=== PATIENT | male | born 1955 | race Caucasian/White ===

== ENCOUNTER 2020-04-02 11:04 | Emergency (ER) | payer OTHER, MEDICARE ==
[~2020-04-02] VITALS: Ht 172.7 cm; Wt 67.7 kg
[~2020-04-02 11:04] MED LIST: HCTZ25T PO; LORA0.5T PO; NAPR-56 PO; OXYC40TA39 PO; VAL5T PO
[2020-04-02] MEDS ORDERED: HYDROcodone/acetaminophen 5mg/325mg tablet PO ONE (12:50)
[2020-04-02] MEDS ORDERED: ketorolac trometh inj. 60 MG/2 ML VIAL IM ONE (12:50)
[2020-04-02 13:07] VITALS: BP 131/82
== END 2020-04-02 13:24 | disposition home or self-care (01) ==
LOC: ER 11:05
DX: M25.562 Pain in left knee (principal); G89.29 Other chronic pain; G62.9 Polyneuropathy, unspecified; I10 Essential (primary) hypertension; Z88.5 Allergy status to narcotic agent; Z79.899 Other long term (current) drug therapy
CPT/HCPCS: 96372; 99283; J1885

== ENCOUNTER 2025-01-21 20:57 | Emergency (ER) | payer MEDICARE, OTHER ==
[~2025-01-21] VITALS: Ht 172.7 cm; Wt 58.7 kg
[~2025-01-21 20:57] MED LIST changes: +DIAZ5TAB22 PO; -VAL5T PO
[2025-01-21 21:10] VITALS: TEMP 98.5
[2025-01-21 21:20] LABS: BASOPHILS # (AUTO) 0.1 X10'3 (0-0.2); BASOPHILS % (AUTO) 0.9 % (0-1); EOSINOPHILS # (AUTO) 0.3 X10'3 (0-0.9); EOSINOPHILS % (AUTO) 3.6 % (0-6); HEMATOCRIT 41.6 % (42.0-52.0); LYMPHOCYTES # (AUTO) 2.1 X10'3 (1.1-4.8); LYMPHOCYTES % (AUTO) 27.8 % (21-51); MEAN CORPUSCULAR HEMOGLOBIN 30.9 PG (27.0-31.0); MEAN CORPUSCULAR HGB CONC 33.6 g/dL (33.0-36.5); MEAN PLATELET VOLUME 7.8 FL (7.4-10.4); MONOCYTES # (AUTO) 0.8 X10'3 (0-0.9); MONOCYTES % (AUTO) 11.3 % (2-12); NEUTROPHILS # (AUTO) 4.2 X10'3 (1.8-7.7); NEUTROPHILS % (AUTO) 56.4 % (42-75); PLATELET COUNT 184 X10'3 (140-440); RED BLOOD COUNT 4.52 X10'6 (4.70-6.10); WHITE BLOOD COUNT 7.4 X10'3 (4.5-11.0)
--- NOTE | 2025-01-21 21:25 | Physician Documentation ---
History of Present Illness ~ Chief Complaint: Chest Pain Stated Complaint: DIZZINESS Time Seen by MD: 23:05 HPI Patient presents to the emergency room for evaluation after altered mental status. Unknown duration. Patient does not remember incident. What he reports that his family members stated was that his eyes were open but nobody was home. Patient's had two months ago and his sinus taking care of him. He denies chest pain Medication Reconciliation Allergies: Coded Allergies: meperidine (Unverified Allergy, Unknown, 01/21/25) morphine (Unverified Allergy, Unknown, 01/21/25) Uncoded Allergies: IV CONTRAST (Allergy, Unknown, 04/02/20) Scheduled Diazepam* (Valium*), 10 MG PO HS, (Reported) Hydrochlorothiazide* (Hctz*), 20 MG PO DAILY, (Reported) Lorazepam* (Ativan*), 0.5 MG PO BID, (Reported) Naproxen (Naproxen), 500 MG PO BID Oxycodone Hcl SR* (Oxycontin SR*), 40 MG PO BID, (Reported) Past Medical History Past Medical History: Peripheral Neuropathy, Hypertension, Chronic Pain Past Surgical History: noncontributory Lives In: Home Review of Systems ROS All review of systems negative except as per HPI Physical Exam Vital Signs: Temperature: 98.5, Source: Temporal, Heart Rate: 82, Respiratory Rate: 16, BP: 105/63, Pulse Oximetry: 97, Weight: 58.700 Oxygen Flow Rate: 0 Physical Exam General: Patient is sleeping, easily arousable in no acute distress. Head: Normocephalic and atraumatic. Eyes: Conjunctival normal. EOMI. PERRL. ENT: Mucous membranes moist. Neck: Supple, trachea is midline. Chest: Clear to auscultation bilaterally without rales, rhonchi, or wheezes. There is no accessory muscle use or retractions. Cardiac: RRR without murmurs, gallops, or rubs. Abd: Soft, nondistended, nontender, with normoactive bowel sounds. No guarding, rebound, or rigidity. Extremities: Normal strength. Normal range of motion. No deformities or edema. Back: No midline spinal or CVA tenderness. Skin: Warm and dry with no significant rash appreciated. Neuro: Cranial nerves II-XII grossly intact. No focal neuro deficits. Patient ambulating without difficulty. Progress Progress Note Attempted to call son but nobody answered Results/Orders Results/Orders Orders - ARJUN CRAFT MD Chest,Single View (01/21/25 21:03) Monitor (01/21/25 21:03) Saline Lock (01/21/25 21:03) Oxygen (01/21/25 21:03) Electrocardiogram (01/21/25 21:03) Ct Head (01/21/25 23:35) Normal Saline 1,000ml Iv Bolus (01/22/25 00:55) Completed Orders - ARJUN CRAFT MD Chest,Single View (01/21/25 21:03) Cbc/Diff (01/21/25 21:03) BMP (01/21/25 21:03) PBNP (01/21/25 21:03) Hs Troponin I W Calculations (01/21/25 21:03) Hs Troponin I W Calculations (01/21/25 23:03) Hs Troponin I W Calculations (01/22/25 00:03) Normal Saline 1000ml (Sodium Chloride 10 (01/21/25 23:30) Ct Head (01/21/25 23:35) Urinalysis, Cult If Indicated (01/21/25 23:31) Medications Received in ER Medications (Trade) Dose Ordered Sig/Nikolay Route PRN Reason Start Time Stop Time Status Last Admin Dose Admin Sodium Chloride 1,000 ml @ 1,000 mls/hr ONCE ONCE IV 01/21/25 23:30 01/22/25 00:29 DC 01/22/25 00:17 1,000 MLS/HR Vital Signs 01/21/25 01/21/25 01/21/25 21:10 22:27 23:42 Temp 98.5 Pulse 82 75 71 Resp 16 20 14 B/P (MAP) 105/63 100/60 (73) 105/69 (81) Pulse Ox 97 97 96 O2 Flow Rate 0 0 Laboratory Tests Test 01/21/25 21:05 01/21/25 22:58 01/22/25 00:01 01/22/25 00:10 White Blood Count 7.4 Red Blood Count 4.52 L Hemoglobin 14.0 Hematocrit 41.6 L Mean Corpuscular Volume 92.0 Mean Corpuscular Hemoglobin 30.9 Mean Corpuscular Hemoglobin Concent 33.6 Red Cell Distribution Width 14.0 Platelet Count 184 Mean Platelet Volume 7.8 Neutrophils (%) (Auto) 56.4 Lymphocytes (%) (Auto) 27.8 Monocytes (%) (Auto) 11.3 Eosinophils (%) (Auto) 3.6 Basophils (%) (Auto) 0.9 Neutrophils # (Auto) 4.2 Lymphocytes # (Auto) 2.1 Monocytes # (Auto) 0.8 Eosinophils # (Auto) 0.3 Basophils # (Auto) 0.1 CBC Comment Sodium Level 144 Potassium Level 4.2 Chloride Level 108 H Carbon Dioxide Level 28.8 Anion Gap 7 L Blood Urea Nitrogen 17 Creatinine 0.79 Estimated GFR/1.73 m2 > 90 BUN/Creatinine Ratio 21.5 H Glucose Level 113 H Calcium Level 8.8 Troponin I High Sensitivity 7 7 8 Pro-B-Type Natriuretic Peptide 69 Albumin 3.6 Chemistry Comments Troponin I High Sens Percent Delta 0 14 Troponin I Hi Sens Absolute Change 0 1 Urine Specimen Description Cln catch midstream Urine Color Yellow Urine Clarity Clear Urine pH 6.0 Urine Specific Glade 1.020 Urine Protein Negative Urine Glucose (UA) Negative Urine Ketones Negative Urine Occult Blood Negative Urine Nitrite Negative Urine Bilirubin Negative Urine Urobilinogen 0.2 Urine Leukocyte Esterase Negative Urine Culture Indicated Not ind Volume Urine Centrifuged 10 ml Urine Comment Medical Decision Making Findings Patient presents to the emergency room as per HPI. We are able to discussed the case with the son who called back. Apparently he was laying in bed and sat up and was confused for a few minutes. Differentials include but are not limited to seizure, stroke, parasomnia, encephalopathy therefore emergent labs and imaging indicated. No postictal state reported and he had not feel he was suffering from seizure and CT scan is reassuring. Given abnormality after sleeping upon wakening he feels he may have been suffering from sleep walking/parasomnia. Neurologic exam is reassuring. He is oriented. Labs are reassuring. Departure Disposition: HOME / SELF CARE / HOMELESS Impression: Primary Impression: Parasomnia, unspecified Condition: Stable Discharge Instructions: General Discharge Instructions Additional Instructions: Drink plenty of water Referrals: NO PRIMARY CARE PROVIDER (PCP) Education Educated: Patient Educated regarding: need for follow up Additional Comment Medical Screen Exam History: This 69-year-old male presented by EMS for episode of chest pain and confusion that has since resolved. Exam: VITALS: Reviewed and as above. GENERAL: Alert, nontoxic appearing, no apparent distress. RESPIRATORY: No increased work of breathing, no respiratory distress, speaking in full clear sentences MSE performed in triage and patient returned to ED lobby by nursing staff ACS protocol initiated by nursing staff, initial EKG demonstrated some minimal isolated ST-elevation in lead II, otherwise patient is hemodynamically stable Signature Scribe Signature: No scribe Attestation: The note accurately reflects work and decisions made by me.Arjun Craft MD 01/22/25 00:55 REMINGTON CANOP Jan 21, 2025 21:25 ARJUN CRAFT MD Jan 21, 2025 23:30
[2025-01-21 21:41] LABS: ALBUMIN 3.6 G/DL (3.4-5.0); ANION GAP 7 (8-16); BLOOD UREA NITROGEN 17 MG/DL (7-18); BUN/CREATININE RATIO 21.5 (10.0-20.0); CALCIUM 8.8 MG/DL (8.5-10.1); CHLORIDE 108 MMOL/L (99-107); CREATININE 0.79 MG/DL (0.60-1.10); GLUCOSE 113 MG/DL (70-104); POTASSIUM 4.2 MMOL/L (3.5-5.1); PRO BRAIN NATRIURETIC PEPTIDE 69 PG/ML (0-125); SODIUM 144 MMOL/L (135-145); TOTAL CARBON DIOXIDE 28.8 MMOL/L (24-32); eCRCL 75 ML/MIN; eGFR > 90 ML/MIN
--- NOTE | 2025-01-21 22:25 | RADIOLOGY REPORT ---
CHEST RADIOGRAPH Indication: CP Technique: Single frontal view of the chest was obtained Comparison: None FINDINGS: Lines and Tubes: None Lungs: Clear Pleura: No effusion. No pneumothorax. Cardiomediastinal contours: Unremarkable Bones: Unremarkable IMPRESSION: Clear lungs.
[2025-01-21 23:42] VITALS: O2SAT 96
[2025-01-22] MEDS: normal saline 1000ml 1,000 ML IV ONE ×2 (00:17→01:13)
[2025-01-22 00:39] LABS: BILIRUBIN,URINE NEGATIVE (Neg); CLARITY,URINE CLEAR (Clear); COLOR,URINE YELLOW (Yellow); GLUCOSE, URINE NEGATIVE (Neg); KETONES,URINE NEGATIVE (Neg); LEUKOCYTE ESTERASE ,URINE NEGATIVE (Neg); NITRITES, URINE NEGATIVE (Neg); OCCULT BLOOD,URINE NEGATIVE (Neg); PROTEIN,URINE NEGATIVE (Neg); UROBILINOGEN,URINE 0.2 E.U/dL (0.2-1.0)
[2025-01-22 00:41] LABS: UA COLLECTION TYPE CLN CATCH MIDSTREAM
--- NOTE | 2025-01-22 00:42 | RADIOLOGY REPORT ---
CT BRAIN WITHOUT CONTRAST HISTORY: ams TECHNIQUE: Axial scans were obtained from the skull base through the vertex without contrast. [place] l and coronal reformats were generated. One or more of the following radiation dose reduction techniq ues were used for this examination: automated exposure control, adjustment of the mA and/or kV accord ing to patient size, use of iterative reconstruction technique. COMPARISON: None FINDINGS: No acute intracranial hemorrhage or evidence of large vessel territorial infarction identified at thi s time. No midline shift. The basilar cisterns are patent. The visualized paranasal sinuses and mastoid air cells are clear. No grossly displaced calvarial frac ture is identified. IMPRESSION: No acute intracranial findings.
[2025-01-22 01:43] VITALS: BP 109/69; PULSE 69; RESP 13
--- NOTE | 2025-01-22 05:43 | ELECTROCARDIOGRAPH REPORT ---
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 Vaughn Mcrae Measurements Intervals [place] Rate: 79 P: 74 MN: 179 QRS: 76 QRSD: 103 T: 68 QT: 366 QTc: 420 Interpretive Statements Sinus rhythm Left atrial enlargement Minimal ST elevation, inferior leads Electronically Signed On 01-22-2025 6:34:[address] Vaughn Mcrae Please click the below link to view image of tracing.
== END 2025-01-22 02:08 | disposition home or self-care (01) ==
LOC: ER 20:58
DX: G47.50 Parasomnia, unspecified (principal); I10 Essential (primary) hypertension; R06.02 Shortness of breath; Z88.5 Allergy status to narcotic agent
CPT/HCPCS: 36415; 70450; 71045; 80048; 81003; 83880; 84484; 85025; 93005; 96360; 96361; 99285; J7030